=== PATIENT | female | born 1975 | race Caucasian/White ===

== ENCOUNTER 2017-11-29 20:28 | Emergency (ER) | payer MEDICAID ==
[2017-11-30] MEDS: HYDROCODONE/APAP (5/325) TAB PO (00:21)
[2017-11-30 00:31] LABS: URINE BLOOD (Dip) POC Negative (NEGATIVE); URINE GLUCOSE (Dip) POC Negative (NEGATIVE); URINE KETONES (Dip) POC Negative (NEGATIVE); URINE LEUKOCYTE EST (Dip) POC 1+ (NEGATIVE); URINE NITRITE (Dip) POC Negative (NEGATIVE); URINE TOTAL PROTEIN POC Negative (NEGATIVE)
== END 2017-11-30 01:29 | disposition home or self-care (01) ==
LOC: FTE 20:28
DX: R51 Headache (principal); N39.0 Urinary tract infection, site not specified
CPT/HCPCS: 70450; 81003; 99284-25

== ENCOUNTER 2018-11-20 23:48 | Emergency (ER) | payer MEDICAID | END 2018-11-21 00:35 | disposition home or self-care (01) | LOC: FTE 23:48 | DX: K13.79 Other lesions of oral mucosa (principal) | CPT/HCPCS: 99283; Z7502 ==